=== PATIENT | male | born 1990 | race Caucasian/White ===

== ENCOUNTER 2023-05-28 06:10 | Emergency (ER) | payer SELFPAY ==
[~2023-05-28] VITALS: Ht 182.9 cm; Wt 90.0 kg
[2023-05-28] MEDS ORDERED: DIPHENHYDRAMINE 50MG/ML VIAL IM STA (06:27)
[2023-05-28] MEDS ORDERED: LORAZEPAM 2MG/ML CPJ IM STA (06:27)
[2023-05-28] MEDS ORDERED: HALOPERIDOL LACTATE 5MG/ML VIAL IM STA (06:27)
[2023-05-28] MEDS ORDERED: LORAZEPAM 2MG/ML UD SYRINGE IM NR ×2 (06:45→09:19)
[2023-05-28] MEDS ORDERED: ASPIRIN 325MG EC TABLET PO ONE (07:00)
[2023-05-28 07:15] VITALS: O2SAT 98
[2023-05-28] MEDS ORDERED: SODIUM CHLORIDE 0.9% 1,000 ML IV ONE (07:30)
[2023-05-28 07:40] LABS: BASOPHILS % 0.4 % (0.0-2.0); EOSINOPHILS % 0.2 % (0.0-5.0); HEMOGLOBIN. 14.4 g/dL (14.0-18.0); LYMPHOCYTES % 11.4 % (20.0-50.0); MEAN CORPUSCULAR HGB CONC 33.4 g/dL (31.0-37.0); MEAN CORPUSCULAR VOLUME 89.8 fL (80.0-94.0); MONOCYTES % 7.5 % (2.0-8.0); NEUTROPHILS % 80.5 % (40.0-76.0); RED CELL DISTRIBUTION WIDTH 13.9 % (11.6-14.6); WHITE BLOOD COUNT 12.4 x1000/uL (4.5-11.0)
[2023-05-28 07:45] LABS: DIFFERENTIAL COMMENT 1
[2023-05-28 07:46] LABS: ADD RBC MORPHOLOGY YES
[2023-05-28 08:09] LABS: ALANINE AMINOTRANSFERASE 59 IU/L (10-49); ALBUMIN 4.7 g/dL (3.2-4.8); ASPARTATE AMINOTRANSFERASE 61 IU/L (<34); BILIRUBIN TOTAL 1.1 mg/dL (0.1-1.0); CALCIUM 9.3 mg/dL (8.7-10.4); CARBON DIOXIDE 26 mEq/L (21-32); CHLORIDE 105 mEq/L (98-107); CREATININE 1.1 mg/dL (0.6-1.3); GLUCOSE 101 mg/dL (70-105); POTASSIUM 3.5 mEq/L (3.5-5.1); PROTEIN TOTAL 8.2 g/dL (6.0-8.3); SODIUM 143 mEq/L (136-145); TROPONIN I HIGH SENSITIVITY 6 ng/L (3.0-53); UREA NITROGEN BLOOD 17 mg/dL (9-23)
[2023-05-28 08:20] LABS: ETHANOL BLOOD < 10 mg/dL (<10); PLATELET ESTIMATE NORMAL
[2023-05-28 08:21] LABS: PLATELET 226 x1000/uL (130-400)
[2023-05-28] MEDS ORDERED: LORAZEPAM 4MG/ML VIAL IM NR (09:15)
[2023-05-28 09:44] LABS: TROPONIN I HIGH SENSITIVITY 6 ng/L (3.0-53)
[2023-05-28 10:10] LABS: CLARITY URINE CLEAR (CLEAR); COLOR URINE DARK YELLOW (YELLOW); GLUCOSE URINE NEGATIVE (NEGATIVE); KETONES URINE 2+ (NEGATIVE); LEUKOCYTE ESTERASE URINE TRACE (NEGATIVE); NITRITE URINE NEGATIVE (NEGATIVE); OCCULT BLOOD URINE NEGATIVE (NEGATIVE); PROTEIN URINE 1+ (NEGATIVE)
[2023-05-28 10:21] LABS: BACTERIA URINE 1+; RBC URINE 0-2 /hpf (0-2); SQUAMOUS EPITHELIAL CELL URINE NONE SEEN /lpf (RARE/1+); YEAST URINE NONE SEEN
[2023-05-28 11:39] LABS: *AMPHETAMINES SCREEN URINE PRESUMPTIVE POSITIVE (NEGATIVE); *BARBITURATES SCREEN URINE NEGATIVE (NEGATIVE); *BENZODIAZEPINES SCREEN URINE NEGATIVE (NEGATIVE); *COCAINE SCREEN URINE NEGATIVE (NEGATIVE); CANNABINOID URINE SCREEN PRESUMPTIVE POSITIVE (NEGATIVE); ECSTASY MDMA SCREEN URINE CONF.TEST INDICATED (NEGATIVE); METHADONE URINE SCREEN Neg (NEGATIVE); OPIATES URINE SCREEN NEGATIVE (NEGATIVE); PHENCYCLIDINE URINE SCREEN NEGATIVE (NEGATIVE)
[2023-05-28 12:14] VITALS: BP 161/81; PULSE 109; RESP 21; TEMP 98.4
== END 2023-05-28 12:29 ==
LOC: ER 06:24
DX: S00.91XA Abrasion of unspecified part of head, initial encounter (principal); F15.90 Other stimulant use, unspecified, uncomplicated; X58.XXXA Exposure to other specified factors, initial encounter; Y93.89 Activity, other specified; Y92.89 Other specified places as the place of occurrence of the external cause; Y99.8 Other external cause status
CPT/HCPCS: 80053; 80305; 81003; 80320; 85025; 84484; 36415; 74176; 96360; 96372; 99291; J1200; J1630; J2060; J7030; G0480